=== PATIENT | female | born 1965 | race Asian ===

== ENCOUNTER 2022-05-12 17:06 | Outpatient (REF) | payer OTHER, SELFPAY ==
[2022-05-12 17:54] LABS: Appearance Urine Clear; Color Urine Yellow; Glucose Urine UA Negative (Negative); Leukocyte Esterase Urine Trace (Negative); Nitrite Urine Negative (Negative); Specific Gravity - Urine <= 1.005 (1.005-1.025); UMIC TRIGGER UACC YES; Urine Blood Trace (Negative); Urine Ketones Negative (Negative); Urine Protein Negative (Neg-Trace)
[2022-05-12 18:02] LABS: Bacteria Urine None Seen (None Seen); Hyaline Casts Urine 0-2 /LPF (0-2); Squamous Epithelial Cell Urine 0-2 /HPF (0-2); WBC Urine 0-5 /HPF (0-5)
[2022-05-12 18:02] LABS: Estimated Average Glucose 111 mg/dL; Hemoglobin A1c % 5.5 %
[2022-05-12 18:15] LABS: Alanine Aminotransferase 21 U/L (0-31); Albumin Level 4.4 g/dL (3.5-5.0); Alkaline Phosphatase 81 U/L (39-117); Anion Gap 14 (12-20); Aspartate Amino Transferase 20 U/L (5-31); Bilirubin Total 0.6 mg/dL (0.0-1.0); Blood Urea Nitrogen 7 mg/dL (9-16); Calcium 9.6 mg/dL (8.4-10.2); Carbon Dioxide 24 mmol/L (22-29); Chloride 108 mmol/L (96-108); Cholesterol 261 mg/dL; Estimated Glomerular Filt Rate > 60; Glucose Fasting 82 mg/dL (60-99); HDL Cholesterol 73 mg/dL; LDL Cholesterol Calculated 165 mg/dl; Potassium 4.1 mmol/L (3.3-5.1); Sodium 142 mmol/L (135-145); Total Protein 7.4 g/dL (6.5-8.0); Triglycerides 116 mg/dL
[2022-05-12 18:31] LABS: Basophils Absolute Auto 0.1 X10*3/uL (0.0-0.2); Basophils Percent Auto 1.5 % (0-2); Eosinophils Absolute Auto 0.4 X10*3/uL (0.0-0.4); Hematocrit 43.1 % (37.0-47.0); Hemoglobin 13.1 g/dl (12.0-16.0); Imm Gran Abs Auto 0.01 X10*3/uL (0.00-0.03); Imm Gran Pct Auto 0.2 % (0.0-0.4); Lymphocytes Absolute Auto 2.2 X10*3/uL (1.2-4.9); Lymphocytes Percent Auto 38.6 % (20-40); MANUAL DIFF FLAG SCAN; Mean Corpuscular HGB Conc 30.4 g/dl (31.0-35.0); Mean Corpuscular Hemoglobin 19.4 pg (27.0-33.0); Mean Corpuscular Volume 63.7 fL (80.0-98.0); Mean Platelet Volume 10.3 fL (9.4-12.3); Monocytes Absolute Auto 0.5 X10*3/uL (0.1-1.2); Monocytes Percent Auto 8.1 % (2-11); Neutrophils Absolute Auto 2.7 x10*3/uL (2.0-8.3); Neutrophils Percent Auto 45.6 % (45-73); Platelet Count 248 X10*3/uL (160-400); Red Blood Count 6.77 X10*6/uL (4.20-5.50); Red Cell Distribution Width 17.1 % (11.0-16.0); SCAN SMEAR FLAG 1; White Blood Count 5.8 X10*3/uL (4.8-10.8)
[2022-05-12 18:32] LABS: PLT ABN DIST 1
[2022-05-12 18:35] LABS: Free T4 (Free Thyroxine) 1.26 ng/dL (0.71-1.85); Thyroid Stimulating Hormone 2.62 uIU/mL (0.32-4.0)
[2022-05-12 18:55] LABS: SLIDE REVIEW VERIFIED
== END 2022-05-12 17:07 | disposition home or self-care (01) ==
LOC: HO.LAB 17:06
PROVIDERS: PCP Internal Medicine; Visit Provider Internal Medicine
DX: Z00.00 Encounter for general adult medical examination without abnormal findings (principal); E78.00 Pure hypercholesterolemia, unspecified; E55.9 Vitamin D deficiency, unspecified; E03.9 Hypothyroidism, unspecified; R73.01 Impaired fasting glucose
CPT/HCPCS: 36415; 80053; 80061; 81001; 82306; 83036; 84439; 84443; 85025

== ENCOUNTER 2022-05-21 14:39 | Outpatient (REF) | payer OTHER, SELFPAY ==
--- NOTE | ~2022-05-21 | MM_ITS ---
EXAMINATION: MM SCREENING DIGITAL BREAST TOMOSYNTHESIS, BILATERAL CLINICAL INFORMATION: Screening. Asymptomatic. The lifetime risk of breast cancer based on the Tyrer-Cuzick Model is 10.5%. COMPARISON: Mammography: 08/10/2013 and studies dating back to 02/16/2009. TECHNIQUE: Digital breast tomosynthesis is performed in both the craniocaudal and mediolateral oblique views along with computer-aided detection (CAD). Synthesized 2D images are generated from the tomosynthesis. FINDINGS: The breasts are heterogeneously dense, which may obscure small masses (ACR BI-RADS breast composition Category c). Within the anterior upper outer aspect of the right breast is a developing grouping of calcifications for which further evaluation with spot magnification views is recommended. Otherwise there is a stable parenchymal pattern present bilaterally. MM/MM tomosynthesis screening BI IMPRESSION: Right breast calcifications for further evaluation with magnification views. ASSESSMENT: BI-RADS 0: Incomplete - Need Additional Imaging Evaluation RECOMMENDATION: 1. Additional views of the right breast. 2. Targeted ultrasound if warranted after review of the additional views. 3. Radiology department staff will contact the patient for additional imaging. This patient's information was entered into a reminder system with a target due date for their next mammogram.
--- NOTE | ~2022-05-21 | MM_ITS ---
EXAMINATION: BONE DENSITOMETRY CLINICAL INDICATION: Asymptomatic menopausal state. COMPARISON: This is the patient's baseline examination. TECHNIQUE: Using a Frontify DXA System (software version: 13.1) manufactured by [employer], dual-energy x-ray absorptiometry was performed of the lumbar spine and left hip. The images are of good technical quality. Summary results are attached. FINDINGS: AP SPINE L1-L4: BMD 0.976 g/cm2, Z-score -1.1, T-score -1.7, osteopenia. LEFT FEMUR, NECK: BMD 0.817 g/cm2, Z-score -0.7, T-score -1.6, osteopenia. LEFT FEMUR, TOTAL: BMD 0.856 g/cm2, Z-score -0.7, T-score -1.2, osteopenia. IDENTIFIED RISK FACTORS: Menopause, history of fracture (adult), tobacco use (current smoker). HISTORY OF FRACTURE: Other. MEDICATIONS: None listed. MM/XR DEXA axial skeleton IMPRESSION: 1. DIAGNOSIS: Osteopenia based on the lowest T-score value of -1.7 in the lumbar spine applying World Health Organization criteria. 2. 10-YEAR FRACTURE RISK PREDICTION, FRAX: Major osteoporotic fracture (clinical spine, forearm, hip or shoulder) 7.0%. Hip fracture 1.1%. 3. Treatment Recommendations: NOF guidelines recommend consideration for treatment in postmenopausal women and men age 50 and older presenting with the following: -A hip or vertebral (clinical or morphometric) fracture. -T-score less than or equal to -2.5 at the femoral neck or spine after appropriate evaluation to exclude secondary causes. -Low bone mass at the hip or spine and a 10-year fracture probability by FRAX of greater than or equal to 3% for hip fracture or greater than or equal to 20% for major osteoporotic fracture based on the [place] adapted WHO algorithm. 4. Other Recommendations: All treatment decisions require clinical judgment and consideration of individual patient factors, including patient preferences, comorbidities, previous drug use, risk factors not captured in the FRAX model (e.g. frailty, falls, vitamin D deficiency, increased bone turnover, interval significant decline in bone density) and possible under or overestimation of fracture risk by FRAX. Additional medical evaluation for secondary cause of low bone mineral density may be appropriate. FUTURE SCAN RECOMMENDATION: People with diagnosed cases of osteoporosis or at high risk for fracture should have regular bone mineral density tests. For patients eligible for Medicare, routine testing is allowed once every 2 years. The testing frequency can be increased to one year for patients who have rapidly progressing disease, those who are receiving or discontinuing medical therapy to restore bone mass, or have additional risk factors.
--- NOTE | 2022-05-21 15:30 | ECG_ITS ---
Test Reason : palpitations Blood Pressure : / mmHG Vent. Rate : 060 BPM Atrial Rate : 060 BPM P-R Int : 138 ms QRS Dur : 102 ms QT Int : 476 ms P-R-T Axes : 005 -16 -08 degrees QTc Int : 476 ms Normal sinus rhythm RSR' or QR pattern in V1 suggests right ventricular conduction delay Nonspecific T wave abnormality Prolonged QT Abnormal ECG No previous ECGs available Referred By: Jesus Suggs Electronically Signed By:SLIME RUDD MD
== END 2022-05-21 14:40 | disposition home or self-care (01) ==
LOC: HO.MAMMO 14:39
PROVIDERS: PCP Internal Medicine; Visit Provider Internal Medicine
DX: Z12.31 Encounter for screening mammogram for malignant neoplasm of breast (principal); Z13.820 Encounter for screening for osteoporosis; E03.9 Hypothyroidism, unspecified; R00.2 Palpitations; Z78.0 Asymptomatic menopausal state
CPT/HCPCS: 77063; 77067; 77080; 93005

== ENCOUNTER 2022-06-01 14:57 | Outpatient (REF) | payer OTHER, SELFPAY ==
--- NOTE | ~2022-06-01 | MM_ITS ---
EXAMINATION: MM DIAGNOSTIC DIGITAL MAMMOGRAPHY, RIGHT CLINICAL INFORMATION: New increasing grouping of microcalcifications superior aspect of the right breast. COMPARISON: Mammography: 05/21/2022 and studies dating back to 09/24/2006. TECHNIQUE: Digital mammography is performed in the following views: Spot magnification views of the right breast in craniocaudal and 90 degree mediolateral views. FINDINGS: The breasts are heterogeneously dense, which may obscure small masses (ACR BI-RADS breast composition Category c). There is an indeterminate grouping of greater than 10 microcalcifications about the superior aspect of the right breast. No branching forms are identified. These calcifications do not layer on 90 degree mediolateral view. Stereotactic core biopsy is recommended. Results are discussed with the patient at time of visit. MM/MM added views RT IMPRESSION: Indeterminate right breast calcifications for stereotactic biopsy. ASSESSMENT: BI-RADS 4: Suspicious RECOMMENDATION: Stereotactic core biopsy right breast. The above was discussed with the patient in detail demonstrating stereotactic core biopsy equipment as as well as reviewing her imaging with me on my workstation. Patient left the department before appointment for biopsy was made. Mammography Center flight line service attendant will call referring provider's office in the morning.
== END 2022-06-01 14:58 | disposition home or self-care (01) ==
LOC: HO.MAMMO 14:57
PROVIDERS: PCP Internal Medicine; Visit Provider Internal Medicine
DX: R92.1 Mammographic calcification found on diagnostic imaging of breast (principal)
CPT/HCPCS: 77065

== ENCOUNTER → 2022-08-20 15:10 | Outpatient (BNVA) | payer OTHER, SELFPAY | PROVIDERS: PCP Internal Medicine; Referring Provider Internal Medicine; Visit Provider Internal Medicine Cardiovascular Disease | DX: Z13.89 Encounter for screening for other disorder (principal) ==

== ENCOUNTER → 2022-09-03 08:19 | Outpatient (REF) | payer OTHER, SELFPAY ==
--- NOTE | 2022-09-03 08:22 | CA_ITS ---
Acquisition Time: 2022-09-03 08:28:54 Total Exercise Time: 00:07:20 Test Indications: R06.00 - Dyspnea, unspecified Medications: Protocol: JUDE Max HR: 148 BPM 96% of Pred: 154 BPM Max BP: 130/080 mmHG Max Work Load: 8.9 METS Exercise stress test with exercise 7 min 20 sec of Jude protocol, achieving 94% MPHR, without anginal symptoms, without arrythmia, with normotensive response to exercise, without EKG changes meeting criteria for ischemia. Test reviewed with Dr Cortes. Referred By: Wayne Nichole Overread By: AVINASH SANTIAGO
== END ==
LOC: HO.CARD 08:19
PROVIDERS: PCP Internal Medicine; Visit Provider Internal Medicine Cardiovascular Disease
DX: R06.00 Dyspnea, unspecified (principal)
CPT/HCPCS: 93017

== ENCOUNTER → 2022-11-05 15:21 | Outpatient (BNVA) | payer OTHER, SELFPAY | PROVIDERS: PCP Internal Medicine; Referring Provider Internal Medicine; Visit Provider Internal Medicine Cardiovascular Disease | DX: Z13.89 Encounter for screening for other disorder (principal) ==

== ENCOUNTER 2023-05-19 15:36 | Outpatient (AMB) | payer OTHER, SELFPAY ==
[2023-05-19 15:38] VITALS: BP 110/80; PULSE 96; O2SAT 98; BMI 28.2
--- NOTE | 2023-05-19 15:38 | A.OFFPC_ITS ---
Vital Signs 05/19/23 15:38 Height 5 ft 4 in Weight 164 lb 2 oz BMI 28.2 BP 110/80 Blood Pressure Location Lt brachial Position Sitting Pulse 96 Pulse Source Pulse Oximeter Pulse Oximetry (%) 98 Oxygen Delivery Method Room Air Intake Visit Reasons: PE Environmental Compliance Engineer Required: No Accompanied by: Self / Same As Patient Allergies No Known Drug Allergies Allergy (Unknown, Verified 05/20/23 04:02) Unknown Medication List - Last Reconciled 05/20/23 by Jesus Suggs MD armodafinil (Nuvigil) 150 mg PO QAM 30 days cholecalciferol (vitamin D3) 50 mcg PO DAILY 90 days triamcinolone acetonide 0.5% 1 appl topical BID PRN Tobacco use date assessed: 05/19/23 Dental Screening Dental Screen Date: 05/19/23 Did you have a dental visit in the last 12 months?: Yes Did you have a dental problem in the last 6 months where you did not have access to dental care?: No Was dental information given to patient?: Patient has dentist HPI PE HPI Details Patient comes in today for her annual physical examination States that she feels okay She denies any headaches or dizziness Denies any chest pains, no shortness of breath No nausea/vomiting, no abdominal pain No change in bowel habits noted Denies any acute urinary symptoms She is scheduled for a repeat mammogram next week to follow-up on the calcifications seen on her right breast on mammogram done last year She had her bone density done last year, which showed osteopenia She did not get her Cologuard done last year but would like to get this reordered - states that she will try get this done as soon as she gets the Cologuard kit She has also not had her gynecology exam and pap smear done yet - was referred to OB-Licensed Embalmer Supervisor of her choice in [place] a few months ago but states that she has not heard back from the doctor's office so far [facility] Medical History (Updated 05/20/23 @ 06:04 by Jesus Suggs MD) Osteopenia Vitamin D deficiency Pure hypercholesterolemia Shift work sleep disorder Overweight (BMI 25.0-29.9) Smoker Hypothyroidism Surgical History History of lumpectomy of right breast History of surgery of uterus Family History Father Diabetes Stroke Hypertension Mother COPD (chronic obstructive pulmonary disease) Asthma Social History Housing: House Patient Tobacco Use Status: Former Tobacco user Quit Date: 2022 Years Smoked: Quit 10/24/2022 Second Hand Smoke Exposure: Yes Current occupational status: employed 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 1. Little interest or pleasure in doing things: not at all 2. Feeling down, depressed, or hopeless: not at all 3. Trouble falling or staying asleep, or sleeping too much: not at all 4. Feeling tired or having little energy: not at all 5. Poor appetite or overeating: not at all 6. Feeling bad about yourself - or that you are a failure or have let yourself or your family down: not at all 7. Trouble concentrating on things, such as reading the newspaper or watching television: not at all 8. Moving or speaking so slowly that other people could have noticed. Or the opposite - being so fidgety or restless that you have been moving around a lot more than usual: not at all 9. Thoughts that you would be better off or of hurting yourself in some way: not at all Total score: 0 Depression Screening Interpretation: Negative Depression Screening Done: Yes 90277 - PHQ-9 Billing: Yes Source: Developed by Drs. Tung Ayala, Paula Bro, Silas Tomlinson and colleagues, with an educational dilcia from [employer]. Thrive Questionnaire Date Thrive assessed: 05/19/23 I am a: Patient What is your living situation today?: I have a steady place to live Within the past 12 months, did the food you bought not last and you didn't have the money to get more?: Never true Within the past 12 months, did you worry whether your food would run out before you got money to buy more?: Never true Do you have trouble paying for medicines?: No Do you have trouble getting transportation to medical appointments?: No Do you have trouble paying your heating and electricity bill?: No Do you have trouble taking care of your child, family member or friend?: No Do you have trouble with day-to-day activities such as bathing, preparing meals, shopping, managing finances, etc.?: No Are you currently unemployed and looking for a job?: No Are you interested in more education?: No Please select the resources that you would like help with: None Currently or been in a relationship where the following occur: no concerns reported AUDIT C Alcohol Use Questionnaire (AUDIT-C) 1. How often do you have a drink containing alcohol?: Monthly or less 2. How many drinks containing alcohol do you have on a typical day when you are drinking?: 1 or 2 3. How often do you have six or more drinks on one occasion?: Never Total Score: 1 Score Reviewed/Action Taken: Yes TRA-7 AMB Questionnaire TRA-7 Date TAR - 7 assessed: 05/19/23 Feeling nervous, anxious, or on edge: 0 = Not at all Not being able to stop or control worryin = Not at all Worrying too much about different things: 0 = Not at all Trouble relaxin = Not at all Being so restless that it is hard to sit still: 0 = Not at all Becoming easily annoyed or irritable: 0 = Not at all Feeling afraid as if something awful might happen: 0 = Not at all Total TRA-7 score (0-4 normal; 5-9 mild; 10-14 moderate; 15-21 severe): 0 Source: Developed by Drs. Tung Ayala, Paula Bro, Silas Tomlinson and colleagues, with an educational dilcia from [employer]. Review of Systems Const Denies chills, Denies fatigue, Denies fever(s), Denies headache(s) and Denies malaise Eyes Denies blurry vision, Denies change in vision, Denies irritation and Denies itchy eyes ENT Denies dysphagia, Denies dizziness, Denies otalgia, Denies headache(s), Denies nasal congestion, Denies neck pain, Denies odynophagia, Denies sinus pain and Denies sore throat Card Denies chest pain, Denies rapid heart rate, Denies irregular heart rhythm, Denies palpitations and Denies dyspnea Resp Denies chest congestion, Denies cough, Denies dyspnea and Denies wheezing GI Denies abdominal pain, Denies bloating, Denies constipation, Denies dysphagia, Denies heartburn, Denies diarrhea, Denies nausea, Denies odynophagia and Denies vomiting Denies hematuria, Denies urinary frequency, Denies dysuria, Denies urinary incontinence and Denies urinary urgency Musc Denies back pain, Denies arthralgias, Denies joint swelling, Denies muscle weakness and Denies neck pain Skin/Breast Denies breast pain, Denies breast mass, Denies change in pigmentation, Denies lesions, Denies rash and Denies unusual bruising Neuro Denies dizziness, Denies headache(s) and Denies paresthesias Psych Denies anxiety and Denies depression Endo Denies fatigue and Denies palpitations Bassam/Lymph Denies easy bruising Aller/Immun Denies itchy eyes and Denies wheezing Physical exam (Primary Care) Vital Signs: Last Vital Signs Pulse 96 05/19/23 15:38 BP 110/80 05/19/23 15:38 Pulse Ox 98 05/19/23 15:38 Oxygen Delivery Method Room Air 05/19/23 15:38 BMI result Body Mass Index 28.2 Tobacco/Smoking Status: Tobacco use Status Tobacco use date assessed 05/19/23 05/19/23 15:43 Patient Tobacco Use Status Former Tobacco user 05/19/23 15:43 PHQ-9: PHQ-9 Score PHQ-9: Total score 0 05/20/23 04:15 Depression Screening Interpretation: Negative Thrive Assessment: Date of Thrive Assessment Date Thrive assessed 05/19/23 05/19/23 15:43 Currently or been in a relationship where the following occur: no concerns reported Const General: no acute distress, alert and awake Orientation/consciousness: patient oriented x3 HENMT Head: Yes normocephalic and Yes atraumatic Ears: external ears normal, TM's normal bilaterally and EAC's normal General nose exam: No nasal discharge present Face and sinus: Yes normal facial exam and Yes sinuses nontender Teeth and gingiva: dentition normal Throat: Yes posterior oropharynx normal and Yes tonsils normal (no TP congestion) Eyes Eyelids: Yes eyelids normal Conjunctivae: conjunctivae normal Pupils: Equal, round and reactive pupils present EOM: EOMs intact bilaterally Neck Neck: Yes no lymphadenopathy and Yes supple Thyroid: Thyroid normal Resp Auscultation: clear to auscultation bilaterally, no rales and no wheezes Cardio Rate: regular rate Rhythm: regular rhythm Heart sounds: no murmurs GI Palpation (GI): Soft to palpation, nontender and No hepatosplenomegaly present Auscultation: normal bowel sounds General: Yes no CVA tenderness Back/Spine/Pelvis Back: no CVA tenderness Thoracic/Lumbar Spine: thoracic and lumbar spine normal to inspection Skin Lesions: no lesions Rashes: no rashes Neuro General: patient oriented x3, moves all extremities, no focal motor deficits and CN's II-XI intact bilaterally Cranial nerves: Yes Equal, round and reactive pupils present Cognition (Neuro): normal cognition Gait exam (Neuro): Normal gait present Extrem General: Yes no clubbing, cyanosis or edema Assessment and Plan Assessment & Plan (1) Annual physical exam: Code(s): Z00.00 - Encounter for general adult medical examination without abnormal findings Plan: Will send patient for her annual routine labs NOLVIA (2) Shift work sleep disorder: Code(s): 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, shift work type Plan: Patient has had difficulty sleeping often over the years, most likely due to shift-work sleep disorder as 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 Continue Nuvigil 150 mg Q AM - states that her sleep has gotten a lot better since she was trialed on Nuvigil last year (3) Pure hypercholesterolemia: Code(s): E78.00 - Pure hypercholesterolemia, unspecified Plan: Reminded again that her cholesterol levels were elevated on her labs done back in May 2022, with her LDL cholesterol at 165 mg/dl Reinforced low cholesterol diet We will recheck her fasting lipids for follow up (4) History of hypothyroidism: Code(s): Z86.39 - Personal history of other endocrine, nutritional and metabolic disease Plan: Was taking Synthroid in the past but stopped taking it on her own a few years ago - reports that she's had no problems since coming off Rx Her TFTs checked last year came out normal, so she did NOT need to go back on any thyroid hormone replacements or supplements at the time Will recheck her TFTs for follow up (5) Vitamin D deficiency: Code(s): E55.9 - Vitamin D deficiency, unspecified Plan: Continue Vitamin D3 2000 units QD Will recheck her Vitamin D level for follow up (6) Osteopenia: Code(s): M85.80 - Other specified disorders of bone density and structure, unspecified site Qualifiers: Osteopenia location: unspecified Qualified Code(s): M85.80 - Other specified disorders of bone density and structure, unspecified site Plan: Her baseline BMD done last year (2021) revealed (+) osteopenia based on the lowest T-score value of -1.7 in the lumbar spine Her 10-year FRAX score = Major osteoporotic fracture (clinical spine, forearm, hip or shoulder) 7.0% and Hip fracture 1.1% Have advised patient to continue on her daily vitamin-D intake and to also start taking oral Calcium supplements of at least 1000 to 1200 mg daily and encouraged her to stay active and exercise regularly but emphasized fall precautions Will recheck her BMD in 2 years and if her BMD declines further, will consider starting her on oral bisphosphonates (7) Calcification of right breast on mammography: Code(s): R92.1 - Mammographic calcification found on diagnostic imaging of breast Plan: Patient had some calcifications on her right breast that was first noticed on routine mammogram done back in May 2022 and these were confirmed on additional view She was recommended to undergo stereotactic Bx for further evaluation but she has not been able to get this scheduled Have advised patient that we should try to get her scheduled for the Bx NOLVIA but she states that she is scheduled to leave for the [facility] for vacation early next month and would like to have this put on hold for when she comes back - was never able to get this scheduled since She is now at least scheduled for her repeat mammogram next week - will need to schedule for Bx NOLVIA if the calcification is still present and hopefully unchanged from last year (8) Smoker: Code(s): F17.200 - Nicotine dependence, unspecified, uncomplicated Plan: Counseled again on smoking cessation (9) Overweight (BMI 25.0-29.9): Code(s): E66.3 - Overweight Plan: Reinforced diet/exercise as tolerated/lose weight (10) Cervical cancer screening: Code(s): Z12.4 - Encounter for screening for malignant neoplasm of cervix Plan: She was referred to OB-Licensed Embalmer Supervisor of her choice in [place] to get her annual pap smear and 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 a few months ago but she has not heard back from the doctor's office so far - it has been a few years now since she's had her pap smear done Have printed out her previous referral with the doctor's contact info and have advised her to give them a call to schedule her appt NOLVIA (11) Colon cancer screening: Code(s): Z12.11 - Encounter for screening for malignant neoplasm of colon Plan: Patient again declined offer to refer her for a screening colonoscopy - has never had one done in the past Agrees to do Cologuard testing again; she states that she completely forgot about the Cologuard testing last year - test reordered Plan Follow up in 6 months Orders: Orders Complete Blood Count Auto Diff 05/19/23 D56.3 - Thalassemia minor, Z00. - Encounter for general adult medical examination without abnormal findings Comprehensive [facility]. Panel Fast 05/19/23 E78.00 - Pure hypercholesterolemia, unspecified, Z00. - Encounter for general adult medical examination without abnormal findings TSH reflex Free T4 05/19/23 E78.00 - Pure hypercholesterolemia, unspecified, Z00.00 - Encounter for general adult medical examination without abnormal findings UA CC w/rflx Micro + Cult 05/19/23 R30.0 - Dysuria, Z00. - Encounter for general adult medical examination without abnormal findings Hemoglobin A1c 05/19/23 R73.01 - Impaired fasting glucose, Z00. - Encounter for general adult medical examination without abnormal findings ISAMAR Reflex Titer and Pattern 05/19/23 M25.50 - Pain in unspecified joint C Reactive Protein 05/19/23 M25.50 - Pain in unspecified joint Erythrocyte Sedimentation Rate 05/19/23 M25.50 - Pain in unspecified joint Lipid Panel 05/19/23 E78.00 - Pure hypercholesterolemia, unspecified, Z00.00 - Encounter for general adult medical examination without abnormal findings Vitamin D 25-OH Total 05/19/23 E55.9 - Vitamin D deficiency, unspecified, Z00.00 - Encounter for general adult medical examination without abnormal findings Referrals Cologuard Test Z12.11 - Encounter for screening for malignant neoplasm of colon Coding Level of Care Code Est Pt Prev Care 40-64y([id number]) Diagnoses Annual physical exam Z00.00 Shift work sleep disorder G47.26 Pure hypercholesterolemia E78.00 History of hypothyroidism Z86.39 Vitamin D deficiency E55.9 Osteopenia, unspecified location M85.80 Osteopenia location: unspecified Calcification of right breast on mammography R92.1 Smoker F17.200 Overweight (BMI 25.0-29.9) E66.3 Cervical cancer screening Z12.4 Colon cancer screening Z12.11
== END 2023-05-19 16:44 | disposition home or self-care (01) ==
PROVIDERS: Visit Provider Internal Medicine
DX: Z00.00 Encounter for general adult medical examination without abnormal findings (principal); G47.26 Circadian rhythm sleep disorder, shift work type; E78.00 Pure hypercholesterolemia, unspecified; Z86.39 Personal history of other endocrine, nutritional and metabolic disease; E55.9 Vitamin D deficiency, unspecified; M85.80 Other specified disorders of bone density and structure, unspecified site; R92.1 Mammographic calcification found on diagnostic imaging of breast; F17.200 Nicotine dependence, unspecified, uncomplicated; E66.3 Overweight; Z12.4 Encounter for screening for malignant neoplasm of cervix; Z12.11 Encounter for screening for malignant neoplasm of colon
CPT/HCPCS: 99396

== ENCOUNTER 2023-05-27 14:29 | Outpatient (REF) | payer OTHER, SELFPAY ==
--- NOTE | ~2023-05-27 | MM_ITS ---
EXAMINATION: MM DIAGNOSTIC DIGITAL BREAST TOMOSYNTHESIS, BILATERAL CLINICAL INFORMATION: Suspicious calcifications central upper right breast, originally referred for stereotactic biopsy, however the patient did not show for the appointment, and is quite hesitant about undergoing stereotactic biopsy. Reevaluate right calcifications. Patient also due for bilateral screening. COMPARISON: Mammography: 06/01/2022, 05/21/2022, dating back to 2013. TECHNIQUE: Digital breast tomosynthesis is performed in both the craniocaudal and mediolateral oblique views along with computer-aided detection (CAD). Synthesized 2D images are generated from the tomosynthesis. In addition, 2-D spot compression right CC and ML views were performed of the right breast. FINDINGS: The breasts are heterogeneously dense, which may obscure small masses (ACR BI-RADS breast composition Category c). Grouped pleomorphic calcifications are extremely subtle and extremely fine within the central 12:00 axis of the right breast, middle one third. Grossly, on spot magnification views, they appear stable from prior spot magnification views, although given the fine and subtle nature of these calcifications, subtle changes may be occult. Otherwise, there are a few scattered benign type calcifications in both breasts which appear dystrophic. No suspicious masses, or areas of architectural distortion in either breast. MM/MM tomosynthesis diagnostic BI IMPRESSION: There are no significant changes from prior study. Grossly stable pleomorphic indeterminate calcifications 12:00 axis RIGHT breast, middle one depth. Again, stereotactic biopsy is advised, mainly due to the appearance of the calcifications with tight grouping. Subtle changes could easily be occult. No suspicious findings left breast. Findings and recommendations were discussed with the patient in detail. ASSESSMENT: BI-RADS BI-RADS 4 - Suspicious finding RECOMMENDATION: Biopsy recommended Results were provided to the patient at time of visit by the technologist. This patient's information was entered into a reminder system with a target due date for their next mammogram.
[2023-05-27 16:36] LABS: Basophils Absolute Auto 0.1 X10*3/uL (0.0-0.2); Basophils Percent Auto 1.6 % (0-2); Eosinophils Absolute Auto 0.3 X10*3/uL (0.0-0.4); Eosinophils Percent Auto 5.1 % (0-4); Hematocrit 39.8 % (37.0-47.0); Hemoglobin 12.1 g/dl (12.0-16.0); Imm Gran Abs Auto 0.01 X10*3/uL (0.00-0.03); Imm Gran Pct Auto 0.2 % (0.0-0.4); Lymphocytes Absolute Auto 2.2 X10*3/uL (1.2-4.9); Lymphocytes Percent Auto 35.3 % (20-40); Mean Corpuscular HGB Conc 30.4 g/dl (31.0-35.0); Mean Corpuscular Hemoglobin 19.5 pg (27.0-33.0); Monocytes Absolute Auto 0.5 X10*3/uL (0.1-1.2); Monocytes Percent Auto 8.2 % (2-11); Neutrophils Percent Auto 49.6 % (45-73); Platelet Count 277 X10*3/uL (160-400); Red Cell Distribution Width 17.2 % (11.0-16.0); White Blood Count 6.1 X10*3/uL (4.8-10.8)
[2023-05-27 16:39] LABS: Appearance Urine Clear; Color Urine Yellow; Glucose Urine UA Negative (Negative); Leukocyte Esterase Urine Small (1+) (Negative); Nitrite Urine Negative (Negative); PH 5.5 (5.0-9.0); Specific Gravity - Urine 1.015 (1.005-1.025); UMIC TRIGGER UACC YES; Urine Blood Moderate (2+) (Negative); Urine Ketones Negative (Negative); Urine Protein Negative (Neg-Trace)
[2023-05-27 16:47] LABS: Estimated Average Glucose 108 mg/dL; Hemoglobin A1c % 5.4 % (<6.0)
[2023-05-27 16:51] LABS: Bacteria Urine None Seen (None Seen); Hyaline Casts Urine 0-2 /LPF (0-2); Squamous Epithelial Cell Urine 0-2 /HPF (0-2); UACC Culture Trigger YES; WBC Urine 0-5 /HPF (0-5)
[2023-05-27 16:59] LABS: Mean Corpuscular Volume 64.2 fL (80.0-98.0)
[2023-05-27 17:02] LABS: MANUAL DIFF FLAG SCAN
[2023-05-27 17:03] LABS: SLIDE REVIEW VERIFIED
[2023-05-27 17:09] LABS: Alanine Aminotransferase 31 U/L (0-31); Albumin Level 4.2 g/dL (3.5-5.0); Alkaline Phosphatase 88 U/L (39-117); Anion Gap 12 (12-20); Aspartate Amino Transferase 24 U/L (5-31); Bilirubin Total 0.4 mg/dL (0.0-1.0); Blood Urea Nitrogen 11 mg/dL (9-16); C Reactive Protein 0.12 mg/dL (< or = 0.50); Calcium 9.9 mg/dL (8.4-10.2); Carbon Dioxide 25 mmol/L (22-29); Chloride 108 mmol/L (96-108); Cholesterol 241 mg/dL (<200); Estimated Glomerular Filt Rate > 60; Glucose Fasting 87 mg/dL (60-99); HDL Cholesterol 72 mg/dL (>40); LDL Cholesterol Calculated 149 mg/dL (<100); Potassium 3.9 mmol/L (3.3-5.1); Sodium 141 mmol/L (135-145); Total Protein 7.6 g/dL (6.5-8.0); Triglycerides 103 mg/dL (<150)
[2023-05-27 17:22] LABS: Erythrocyte Sedimentation Rate 7 MM/HR (0-20)
[2023-05-27 17:25] LABS: Free T4 (Free Thyroxine) 1.06 ng/dL (0.71-1.85); Thyroid Stimulating Hormone 3.79 uIU/mL (0.32-4.0); Vitamin D 25-OH Total 42.8 ng/mL (>30)
[2023-05-28 15:43] LABS: Hematocrit 41.2 % (35.0-45.0); Hemoglobin 12.1 g/dL (11.7-15.5); MCH 19.6 pg (27.0-33.0); MCV 66.8 fL (80.0-100.0); RBC 6.17 Million/uL (3.80-5.10); RDW 15.1 % (11.0-15.0)
[2023-06-01 12:33] LABS: Anti Nuclear Antibody Screen POSITIVE (NEGATIVE)
== END 2023-05-27 14:30 | disposition home or self-care (01) ==
LOC: HO.MAMMO 14:29
PROVIDERS: PCP Internal Medicine; Visit Provider Internal Medicine
DX: R92.1 Mammographic calcification found on diagnostic imaging of breast (principal); M25.50 Pain in unspecified joint; E78.00 Pure hypercholesterolemia, unspecified; E55.9 Vitamin D deficiency, unspecified; R30.0 Dysuria; R73.01 Impaired fasting glucose; Z00.00 Encounter for general adult medical examination without abnormal findings
CPT/HCPCS: 36415; 77062; 77066; 80053; 80061; 81001; 82306; 83020; 83036; 84439; 84443; 85014; 85018; 85025; 85041; 85652; 86038; 86039; 86140; 87086

== ENCOUNTER → 2023-05-27 14:45 | Outpatient (BNV) | payer OTHER, SELFPAY | PROVIDERS: PCP Internal Medicine; Visit Provider Radiology Diagnostic Radiology | DX: R92.333 Mammographic heterogeneous density, bilateral breasts (principal); R92.1 Mammographic calcification found on diagnostic imaging of breast | CPT/HCPCS: 77062; 77066 ==

== ENCOUNTER 2023-06-18 09:47 | Outpatient (REF) | payer OTHER, SELFPAY ==
--- NOTE | ~2023-06-18 | MM_ITS ---
EXAMINATION: STEREOTACTIC TOMOSYNTHESIS-GUIDED VACUUM-ASSISTED BREAST BIOPSY, RIGHT SPECIMEN RADIOGRAPH, RIGHT POST PROCEDURE DIGITAL MAMMOGRAM, RIGHT CLINICAL INFORMATION: Calcifications central 12:00 axis right breast, suspicious for stereotactic biopsy.. COMPARISON: 06/01/2022. TECHNIQUE/PROCEDURE: Informed consent was obtained from the patient after discussion of the benefits, risks, and alternatives to biopsy today. Patient appeared to understand. Gave opportunity for questions. Patient signed consent form. BIOPSY TABLE: Gusto Affirm Prone Biopsy System. LESION: Calcifications. LOCAL ANESTHESIA: 5 mL 1% lidocaine; 7 mL 1% lidocaine with epinephrine. DERMATOTOMY: Single skin shaheen dermatotomy performed. NEEDLE: [employer] Eviva 9-gauge vacuum assisted core biopsy device. APPROACH: craniocaudal. TARGETING: Combination of digital breast tomosynthesis and stereotactic digital mammography used for targeting. CORES: 7. CLIP: Buckle-shaped. SPECIMEN RADIOGRAPH: Specimen radiograph is taken in separate room using digital mammography. The index calcifications are in the excised cores. POST PROCEDURE UNILATERAL DIGITAL MAMMOGRAM: The post biopsy mammogram is performed in separate room using separate digital mammography equipment from the biopsy procedure. CC and 90 degree mediolateral views are obtained. There are scattered areas of fibroglandular density (breast composition category: b). The clip marker is in accurate and expected position. The calcifications are markedly decreased at the biopsy site. No gross hematoma. The patient tolerated the procedure well. No immediate complications. Home instructions reviewed with the patient. Final pathology results are pending. MM/MM stereotactic biopsy RT IMPRESSION: 1. Digital tomosynthesis-guided core biopsy right breast with clip placement. 2. Specimen radiograph taken and post procedure mammogram. There is accurate and satisfactory positioning of the biopsy clip. 3. Final pathology results pending. An addendum report will be issued.
[2023-06-18] MEDS: Lidocaine HCl 1 % 20 ML VIAL 4 ML SUBCUT (11:27)
[2023-06-18] MEDS: Sodium Bicarbonate 8.4% 50 MEQ/50 ML VIAL SUBCUT (11:29)
[2023-06-18] MEDS: Lidocaine HCl 1%/Epi 1:100,000 10 ML VIAL 17 ML SUBCUT (11:31)
== END 2023-06-18 09:48 | disposition home or self-care (01) ==
LOC: HO.MAMMO 09:47
PROVIDERS: Visit Provider Internal Medicine
DX: R92.1 Mammographic calcification found on diagnostic imaging of breast (principal)
CPT/HCPCS: 19081; 88305; A4648

== ENCOUNTER → 2023-06-18 10:00 | Outpatient (BNV) | payer OTHER, SELFPAY | PROVIDERS: Visit Provider Radiology Diagnostic Radiology | DX: R92.1 Mammographic calcification found on diagnostic imaging of breast (principal) | CPT/HCPCS: 19081 ==

== ENCOUNTER 2023-11-24 15:17 | Outpatient (AMB) | payer OTHER, SELFPAY ==
[2023-11-24 15:18] VITALS: BP 100/68; PULSE 63; O2SAT 97; BMI 28.8
--- NOTE | 2023-11-24 15:18 | A.OFFPC_ITS ---
Vital Signs 11/24/23 15:18 Height 5 ft 4 in Weight 168 lb BMI 28.8 BP 100/68 Blood Pressure Location Lt brachial Position Sitting Pulse 63 Pulse Source Pulse Oximeter Pulse Oximetry (%) 97 Oxygen Delivery Method Room Air Intake Visit Reasons: hyperlipidemia, thalassemia Intake Note: Patient is here to follow up on hyperlipidemia, thalassemia [employer] Required: No Allergies No Known Drug Allergies Allergy (Unknown, Verified 11/24/23 15:47) Unknown Medication List - Last Reconciled 11/24/23 by Jesus Suggs MD armodafinil (Nuvigil) 150 mg PO QAM 30 days cholecalciferol (vitamin D3) 50 mcg PO DAILY 90 days triamcinolone acetonide 0.5% 1 appl topical BID PRN Tobacco use date assessed: 11/24/23 Dental Screening Dental Screen Date: 11/24/23 HPI hyperlipidemia, thalassemia HPI Details Patient comes in today for her follow-up visit States that she feels okay She denies any headaches or dizziness Denies any chest pains, no shortness of breath No nausea /vomiting, no abdominal pain No change in bowel habits noted Would like to go over the results of her labs done back in May 2023 [facility] Medical History Colon cancer screening Osteopenia Vitamin D deficiency Pure hypercholesterolemia Shift work sleep disorder Overweight (BMI 25.0-29.9) Smoker Hypothyroidism Surgical History History of lumpectomy of right breast History of surgery of uterus Family History Father Diabetes Stroke Hypertension Mother COPD (chronic obstructive pulmonary disease) Asthma Social History Housing: House Patient Tobacco Use Status: Former Tobacco user Quit Date: 2022 Years Smoked: Quit 10/24/2022 Second Hand Smoke Exposure: Yes Current occupational status: employed 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 1. Little interest or pleasure in doing things: not at all 2. Feeling down, depressed, or hopeless: not at all 3. Trouble falling or staying asleep, or sleeping too much: not at all 4. Feeling tired or having little energy: not at all 5. Poor appetite or overeating: not at all 6. Feeling bad about yourself - or that you are a failure or have let yourself or your family down: not at all 7. Trouble concentrating on things, such as reading the newspaper or watching television: not at all 8. Moving or speaking so slowly that other people could have noticed. Or the opposite - being so fidgety or restless that you have been moving around a lot more than usual: not at all 9. Thoughts that you would be better off or of hurting yourself in some way: not at all Total score: 0 Depression Screening Interpretation: Negative Depression Screening Done: Yes [id number] - PHQ-9 Billing: Yes Source: Developed by Drs. Tung Ayala, Paula Bro, Silas Tomlinson and colleagues, with an educational dilcia from [employer]. Thrive Questionnaire Date Thrive assessed: 11/24/23 I am a: Patient What is your living situation today?: I have a steady place to live Within the past 12 months, did the food you bought not last and you didn't have the money to get more?: Never true Within the past 12 months, did you worry whether your food would run out before you got money to buy more?: Never true Do you have trouble paying for medicines?: No Do you have trouble getting transportation to medical appointments?: No Do you have trouble paying your heating and electricity bill?: No Do you have trouble taking care of your child, family member or friend?: No Do you have trouble with day-to-day activities such as bathing, preparing meals, shopping, managing finances, etc.?: No Are you currently unemployed and looking for a job?: No Are you interested in more education?: No Please select the resources that you would like help with: None Currently or been in a relationship where the following occur: no concerns reported THRIVE Score: 0 AUDIT C Alcohol Use Questionnaire (AUDIT-C) 1. How often do you have a drink containing alcohol?: Monthly or less 2. How many drinks containing alcohol do you have on a typical day when you are drinking?: 1 or 2 3. How often do you have six or more drinks on one occasion?: Never Total Score: 1 Score Reviewed/Action Taken: Yes TRA-7 AMB Questionnaire TRA-7 Date TRA - 7 assessed: 11/24/23 Feeling nervous, anxious, or on edge: 0 = Not at all Not being able to stop or control worryin = Not at all Worrying too much about different things: 0 = Not at all Trouble relaxin = Not at all Being so restless that it is hard to sit still: 0 = Not at all Becoming easily annoyed or irritable: 0 = Not at all Feeling afraid as if something awful might happen: 0 = Not at all Total TRA-7 score (0-4 normal; 5-9 mild; 10-14 moderate; 15-21 severe): 0 Source: Developed by Drs. Tung Ayala, Paula Bro, Silas Tomlinson and colleagues, with an educational dilcia from [employer]. Review of Systems Const Denies chills, Reports difficulty sleeping, Reports fatigue, Denies fever(s) and Denies headache(s) ENT Denies dysphagia, Denies dizziness, Denies otalgia, Denies headache(s), Denies odynophagia and Denies sore throat Card Denies chest pain, Denies palpitations and Denies dyspnea Resp Denies cough and Denies dyspnea GI Denies abdominal pain, Denies constipation, Denies dysphagia, Denies heartburn, Denies diarrhea, Denies nausea, Denies odynophagia and Denies vomiting Denies difficulty voiding, Denies nocturia and Denies dysuria Musc Denies back pain Neuro Denies dizziness and Denies headache(s) Endo Reports fatigue and Denies palpitations Physical exam (Primary Care) Vital Signs: Last Vital Signs Pulse 63 11/24/23 15:18 BP 100/68 11/24/23 15:18 Pulse Ox 97 11/24/23 15:18 Oxygen Delivery Method Room Air 11/24/23 15:18 BMI result Body Mass Index 28.8 Tobacco/Smoking Status: Tobacco use Status Tobacco use date assessed 11/24/23 11/24/23 15:19 Patient Tobacco Use Status Former Tobacco user 11/24/23 15:19 PHQ-9: PHQ-9 Score PHQ-9: Total score 0 11/24/23 15:47 Depression Screening Interpretation: Negative Thrive Assessment: Date of Thrive Assessment Date Thrive assessed 11/24/23 11/24/23 15:19 Currently or been in a relationship where the following occur: no concerns reported Const General: no acute distress and alert HENMT Ears: TM's normal bilaterally and EAC's normal Throat: Yes posterior oropharynx normal and Yes tonsils normal (no TP congestion) Neck Neck: Yes no lymphadenopathy and Yes supple Thyroid: Thyroid normal Resp Auscultation: clear to auscultation bilaterally, no rales and no wheezes Cardio Rate: regular rate Rhythm: regular rhythm Heart sounds: no murmurs GI Palpation (GI): Soft to palpation and nontender Auscultation: normal bowel sounds General: Yes no CVA tenderness Back/Spine/Pelvis Back: no CVA tenderness Thoracic/Lumbar Spine: No lumbar spinal tenderness Skin Rashes: no rashes Extrem General: Yes no clubbing, cyanosis or edema Results Reviewed Results Reviewed: Laboratory Tests 05/27/23 05/27/23 16:08 16:09 WBC 6.1 Hgb 12.1 Hct 39.8 MCV 64.2 L MCH 19.5 L RDW 17.2 H Plt Count 277 ESR 7 Potassium 3.9 Creatinine 0.75 Estimated GFR > 60 Fasting Glucose 87 Hemoglobin A1c % 5.4 Calcium 9.9 AST 24 ALT 31 Triglycerides 103 Cholesterol 241 H LDL Cholesterol, Calc 149 H HDL Cholesterol 72 25-OH Vitamin D Total 42.8 TSH 3.79 Free T4 1.06 Ur Specific [place] 1.015 Urine Protein Negative Urine Glucose (UA) Negative Urine Blood Moderate (2+) H Urine Nitrite Negative Ur Leukocyte Esterase Small (1+) H ISAMAR Screen POSITIVE A ISAMAR Titer 1:320 H Assessment and Plan Assessment & Plan (1) Shift work sleep disorder: Code(s): 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, shift work type Plan: Patient has had difficulty sleeping often over the years, most likely due to shift-work sleep disorder as 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 Continue Nuvigil 150 mg Q AM - states that her sleep has gotten a lot better since she was trialed on Nuvigil last year (2) Pure hypercholesterolemia: Code(s): E78.00 - Pure hypercholesterolemia, unspecified Plan: Results of her labs done back in May 2023 reviewed and discussed with patient She is advised that her cholesterol levels were still elevated although they have improved slightly from her numbers in 2021 - LDL cholesterol has dropped slightly from 165 mg/dl to 149 mg/dl Reinforced low cholesterol diet We will recheck her fasting lipids in 6 months for follow up and advised that if her numbers do not continue to improve significantly, then she should consider starting on Rx for her high cholesterol (3) Alpha thalassemia: Code(s): D56.0 - Alpha thalassemia Plan: She is advised that her CBC results suggest that she has alpha thalassemia Will refer her for genetic counseling (4) ISAMAR positive: Code(s): R76.8 - Other specified abnormal immunological findings in serum Plan: Patient is also advised that her labs done in May 2023 came out positive for ISAMAR, suggesting the possibility of lupus Will refer her to rheumatology for further evaluation and management - she requested referral to [facility] in [place] (5) History of hypothyroidism: Code(s): Z86.39 - Personal history of other endocrine, nutritional and metabolic disease Plan: Was taking Synthroid in the past but stopped taking it on her own a few years ago - reports that she's had no problems since coming off Rx Her TFTs checked last year came out normal, so she did NOT need to go back on any thyroid hormone replacements or supplements at the time Her repeat TFTs done in May 2023 remained normal (6) Vitamin D deficiency: Code(s): E55.9 - Vitamin D deficiency, unspecified Plan: Corrected - continue Vitamin D3 2000 units QD Will recheck her Vitamin D level in 6 months for follow up (7) Osteopenia: Code(s): M85.80 - Other specified disorders of bone density and structure, unspecified site Qualifiers: Osteopenia location: unspecified Qualified Code(s): M85.80 - Other specified disorders of bone density and structure, unspecified site Plan: Her baseline BMD done in 2021 revealed (+) osteopenia based on the lowest T- score value of -1.7 in the lumbar spine Her 10-year FRAX score = major osteoporotic fracture (clinical spine, forearm, hip or shoulder) 7.0% and Hip fracture 1.1% Have advised patient to continue on her daily vitamin-D intake and to also start taking oral Calcium supplements of at least 1000 to 1200 mg daily and encouraged her to stay active and exercise regularly but emphasized fall precautions Will recheck her BMD later this year and if her BMD declines further, will consider starting her on oral bisphosphonates (8) Calcification of right breast on mammography: Code(s): R92.1 - Mammographic calcification found on diagnostic imaging of breast Plan: Patient had some calcifications on her right breast that was first noticed on routine mammogram done back in May 2022 and these were confirmed on additional view She was recommended to undergo stereotactic Bx for further evaluation She eventually had this done in June 2023 - pathology came out benign - (+) usual ductal hyperplasia with calcifications at tissue edge; sclerosing adenosis and dense stromal fibrosis She is scheduled for her repeat/follow up mammogram early next month (9) Smoker: Code(s): F17.200 - Nicotine dependence, unspecified, uncomplicated Plan: Counseled again on smoking cessation (10) Overweight (BMI 25.0-29.9): Code(s): E66.3 - Overweight Plan: Reinforced diet/exercise as tolerated/lose weight Plan To return as scheduled in 6 months for her next annual physical examination Orders: Orders Complete Blood Count Auto Diff 05/09/24 D64.9 - Anemia, unspecified, Z00.00 - Encounter for general adult medical examination without abnormal findings Comprehensive [place]. Panel Fast 05/09/24 E78.00 - Pure hypercholesterolemia, unspecified, Z00.00 - Encounter for general adult medical examination without abnormal findings TSH reflex Free T4 05/09/24 E78.00 - Pure hypercholesterolemia, unspecified, Z00.00 - Encounter for general adult medical examination without abnormal findings UA CC w/rflx Micro + Cult 05/09/24 R30.0 - Dysuria, Z00.00 - Encounter for general adult medical examination without abnormal findings IRON PROFILE 05/09/24 D50.9 - Iron deficiency anemia, unspecified, Z00.00 - Encounter for general adult medical examination without abnormal findings Lipid Panel 05/09/24 E78.00 - Pure hypercholesterolemia, unspecified, Z00.00 - Encounter for general adult medical examination without abnormal findings Vitamin D 25-OH Total 05/09/24 E55.9 - Vitamin D deficiency, unspecified, Z00.00 - Encounter for general adult medical examination without abnormal findings Referrals Genetics Referral D56.0 - Alpha thalassemia Rheumatology Referral R76.8 - Other specified abnormal immunological findings in serum Coding Level of Care Code Est Pt Level 4 (48558) Diagnoses Shift work sleep disorder G47.26 Pure hypercholesterolemia E78.00 Alpha thalassemia D56.0 ISAMAR positive R76.8 History of hypothyroidism Z86.39 Vitamin D deficiency E55.9 Osteopenia, unspecified location M85.80 Osteopenia location: unspecified Calcification of right breast on mammography R92.1 Smoker F17.200 Overweight (BMI 25.0-29.9) E66.3
== END 2023-11-24 16:09 | disposition home or self-care (01) ==
PROVIDERS: PCP Internal Medicine; Visit Provider Internal Medicine
DX: G47.26 Circadian rhythm sleep disorder, shift work type (principal); E78.00 Pure hypercholesterolemia, unspecified; D56.0 Alpha thalassemia; R76.8 Other specified abnormal immunological findings in serum; Z86.39 Personal history of other endocrine, nutritional and metabolic disease; E55.9 Vitamin D deficiency, unspecified; M85.80 Other specified disorders of bone density and structure, unspecified site; R92.1 Mammographic calcification found on diagnostic imaging of breast; F17.200 Nicotine dependence, unspecified, uncomplicated; E66.3 Overweight
CPT/HCPCS: 99214

== ENCOUNTER 2023-12-10 14:27 | Outpatient (REF) | payer OTHER, SELFPAY ==
--- NOTE | ~2023-12-10 | MM_ITS ---
EXAMINATION: MM DIAGNOSTIC DIGITAL BREAST TOMOSYNTHESIS, RIGHT CLINICAL INFORMATION: 6 month follow-up status post benign stereotactic biopsy of calcifications in the upper central right breast COMPARISON: Mammography: 05/27/2023, 06/01/2022. Stereotactic biopsy 06/18/2023. TECHNIQUE: Digital right breast tomosynthesis is performed in both the craniocaudal and mediolateral oblique views along with computer-aided detection (CAD). Synthesized 2D images are generated from the tomosynthesis. In addition, spot magnification 2-D right CC and ML views were obtained, as well as a full-field 3-D right mediolateral view. FINDINGS: The breasts are heterogeneously dense, which may obscure small masses (ACR BI-RADS breast composition Category c). Images demonstrate complete removal of full group of calcifications in the 12:00 axis of the right breast, mid depth. No residual or recurrent calcifications seen. There otherwise is skin and benign dystrophic calcifications present in the right breast. There are no parenchymal suspicious findings. There are no skin or axillary abnormalities. MM/MM tomosynthesis diagnostic RT IMPRESSION: No findings identified right breast suspicious for malignancy. Exam shows complete removal of small group of pleomorphic calcifications 6 months post biopsy. No residual calcifications. Recommend this patient resume routine annual screening mammography in 6 months. ASSESSMENT: BI-RADS BI-RADS 2 - Benign Findings RECOMMENDATION: 1 year F/U Results were provided to the patient at time of visit by the technologist. This patient's information was entered into a reminder system with a target due date for their next mammogram.
== END 2023-12-10 14:28 | disposition home or self-care (01) ==
LOC: HO.MAMMO 14:27
PROVIDERS: PCP Internal Medicine; Visit Provider Internal Medicine
DX: R92.1 Mammographic calcification found on diagnostic imaging of breast (principal)
CPT/HCPCS: 77061; 77065

== ENCOUNTER → 2023-12-10 14:30 | Outpatient (BNV) | payer OTHER, SELFPAY | PROVIDERS: PCP Internal Medicine; Visit Provider Radiology Diagnostic Radiology | DX: R92.1 Mammographic calcification found on diagnostic imaging of breast (principal) | CPT/HCPCS: 77061; 77065 ==

== ENCOUNTER 2024-05-24 14:34 | Outpatient (AMB) | payer OTHER, SELFPAY ==
[2024-05-24 14:35] VITALS: BP 120/82; PULSE 57; O2SAT 98; BMI 28.9
--- NOTE | 2024-05-24 14:35 | A.OFFPC_ITS ---
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 Required: No Accompanied by: Self / Same As Patient Allergies No Known Drug Allergies Allergy (Unknown, Verified 05/24/24 15:02) Unknown Medication List - Last Reconciled 05/25/24 by Jesus Suggs MD armodafinil (Nuvigil) 150 mg PO QAM 30 days cholecalciferol (vitamin D3) 50 mcg PO DAILY 90 days triamcinolone acetonide 0.5% 1 appl topical BID PRN Tobacco use date assessed: 05/24/24 Dental Screening Dental Screen Date: 05/24/24 Did you have a dental visit in the last 12 months?: No Did you have a dental problem in the last 6 months where you did not have access to dental care?: No Was dental information given to patient?: No HPI Annual Exam HPI Details Patient comes in today for her annual physical examination States that she feels okay She denies any headaches or dizziness Denies any chest pains, no shortness of breath No nausea/vomiting, no abdominal pain No change in bowel habits noted She denies any acute urinary symptoms She is scheduled for her annual mammogram next month (June 2024) She had a negative Cologuard test done in June 2023 and had her BMD done back in May 2022 She has not had her gynecology exam and pap smear done in a few years now - she has been referred to her aircraft servicer of choice in [place] last year but states that she was never contacted for an appointment [facility] Medical History Colon cancer screening Osteopenia Vitamin D deficiency Pure hypercholesterolemia Shift work sleep disorder Overweight (BMI 25.0-29.9) Smoker Hypothyroidism Surgical History History of lumpectomy of right breast History of surgery of uterus Family History Father Diabetes Stroke Hypertension Mother COPD (chronic obstructive pulmonary disease) Asthma Social History Housing: House Patient Tobacco Use Status: Former Tobacco user Years Smoked: Quit 10/24/2022 e-Cigarette/Vaping Use: Never Used Second Hand Smoke Exposure: Yes service: No Current occupational status: employed 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 1. Little interest or pleasure in doing things: not at all 2. Feeling down, depressed, or hopeless: not at all 3. Trouble falling or staying asleep, or sleeping too much: not at all 4. Feeling tired or having little energy: not at all 5. Poor appetite or overeating: not at all 6. Feeling bad about yourself - or that you are a failure or have let yourself or your family down: not at all 7. Trouble concentrating on things, such as reading the newspaper or watching television: not at all 8. Moving or speaking so slowly that other people could have noticed. Or the opposite - being so fidgety or restless that you have been moving around a lot more than usual: not at all 9. Thoughts that you would be better off or of hurting yourself in some way: not at all Total score: 0 Depression Screening Interpretation: Negative Depression Screening Done: Yes 97178 - PHQ-9 Billing: Yes Source: Developed by Drs. Tung Ayala, Paula Bro, Silas Tomlinson and colleagues, with an educational dilcia from [email or web address]. Thrive Questionnaire Date Thrive assessed: 05/24/24 I am a: Patient What is your living situation today?: I have a steady place to live Within the past 12 months, did the food you bought not last and you didn't have the money to get more?: Never true Within the past 12 months, did you worry whether your food would run out before you got money to buy more?: Never true Do you have trouble paying for medicines?: No Do you have trouble getting transportation to medical appointments?: No Do you have trouble paying your heating and electricity bill?: No Do you have trouble taking care of your child, family member or friend?: No Do you have trouble with day-to-day activities such as bathing, preparing meals, shopping, managing finances, etc.?: No Are you currently unemployed and looking for a job?: No Are you interested in more education?: No Please select the resources that you would like help with: None Currently or been in a relationship where the following occur: No concerns reported THRIVE Score: 0 AUDIT C Alcohol Use Questionnaire (AUDIT-C) 1. How often do you have a drink containing alcohol?: Never 2. How many drinks containing alcohol do you have on a typical day when you are drinking?: 1 or 2 3. How often do you have six or more drinks on one occasion?: Never Total Score: 0 Score Reviewed/Action Taken: Yes TRA-7 AMB Questionnaire TRA-7 Date TRA - 7 assessed: 05/24/24 Feeling nervous, anxious, or on edge: 0 = Not at all Not being able to stop or control worryin = Not at all Worrying too much about different things: 0 = Not at all Trouble relaxin = Not at all Being so restless that it is hard to sit still: 0 = Not at all Becoming easily annoyed or irritable: 0 = Not at all Feeling afraid as if something awful might happen: 0 = Not at all Total TRA-7 score (0-4 normal; 5-9 mild; 10-14 moderate; 15-21 severe): 0 Source: Developed by Drs. Tung Ayala, Paula Bro, Silas Tomlinson and colleagues, with an educational dilcia from [email or web address]. Review of Systems Const Denies chills, Denies fatigue, Denies fever(s), Denies headache(s) and Denies malaise Eyes Denies blurry vision, Denies change in vision, Denies irritation and Denies itchy eyes ENT Denies dysphagia, Denies dizziness, Denies otalgia, Denies headache(s), Denies nasal congestion, Denies neck pain, Denies odynophagia, Denies sinus pain and Denies sore throat Card Denies chest pain, Denies rapid heart rate, Denies irregular heart rhythm, Denies palpitations and Denies dyspnea Resp Denies chest congestion, Denies cough, Denies dyspnea and Denies wheezing GI Denies abdominal pain, Denies bloating, Denies constipation, Denies dysphagia, Denies heartburn, Denies diarrhea, Denies nausea, Denies odynophagia and Denies vomiting Denies hematuria, Denies urinary frequency, Denies dysuria, Denies urinary incontinence and Denies urinary urgency Musc Denies back pain, Denies arthralgias, Denies joint swelling, Denies muscle weakness and Denies neck pain Skin/Breast Denies breast pain, Denies breast mass, Denies change in pigmentation, Denies lesions, Denies rash and Denies unusual bruising Neuro Denies dizziness, Denies headache(s) and Denies paresthesias Psych Denies anxiety and Denies depression Endo Denies fatigue and Denies palpitations Bassam/Lymph Denies easy bruising Aller/Immun Denies itchy eyes and Denies wheezing Physical exam (Primary Care) Vital Signs: Last Vital Signs Pulse 57 05/24/24 14:35 BP 120/82 05/24/24 14:35 Pulse Ox 98 05/24/24 14:35 Oxygen Delivery Method Room Air 05/24/24 14:35 BMI result Body Mass Index 28.9 Tobacco/Smoking Status: Tobacco use Status Tobacco use date assessed 05/24/24 05/24/24 14:37 Patient Tobacco Use Status Former Tobacco user 05/24/24 14:37 e-Cigarette/Vaping Use Never Used 05/24/24 14:46 PHQ-9: PHQ-9 Score PHQ-9: Total score 0 05/24/24 15:37 Depression Screening Interpretation: Negative Thrive Assessment: Date of Thrive Assessment Date Thrive assessed 05/24/24 05/24/24 14:37 Currently or been in a relationship where the following occur: No concerns reported Const General: no acute distress, alert and awake Orientation/consciousness: patient oriented x3 HENMT Head: Yes normocephalic and Yes atraumatic Ears: external ears normal, TM's normal bilaterally and EAC's normal General nose exam: No nasal discharge present Face and sinus: Yes normal facial exam and Yes sinuses nontender Teeth and gingiva: dentition normal Throat: Yes posterior oropharynx normal and Yes tonsils normal (no TP congestion) Eyes Eyelids: Yes eyelids normal Conjunctivae: conjunctivae normal Pupils: Equal, round and reactive pupils present EOM: EOMs intact bilaterally Neck Neck: Yes no lymphadenopathy and Yes supple Thyroid: Thyroid normal Resp Auscultation: clear to auscultation bilaterally, no rales and no wheezes Cardio Rate: regular rate Rhythm: regular rhythm Heart sounds: no murmurs GI Palpation (GI): Soft to palpation, nontender and No hepatosplenomegaly present Auscultation: normal bowel sounds General: Yes no CVA tenderness Back/Spine/Pelvis Back: no CVA tenderness Thoracic/Lumbar Spine: thoracic and lumbar spine normal to inspection Skin Lesions: no lesions Rashes: no rashes Neuro General: patient oriented x3, moves all extremities, no focal motor deficits and CN's II-XI intact bilaterally Cranial nerves: Yes Equal, round and reactive pupils present Cognition (Neuro): normal cognition Gait exam (Neuro): Normal gait present Extrem General: Yes no clubbing, cyanosis or edema Office Procedures Flu Questionnaire Does the patient have a severe egg allergy?: No Immunizations Fluarix Triv [id number] (PF) 45 mcg (15 mcg x 3)/0.5 mL IM syringe Performing Provider: Jesus Suggs MD [facility] Documented (not given) by: STAR Henson on 05/24/24 14:46 Reason Not Given: Patient Refused Coding Level of Care Code Est Pt Prev Care 40-64y(39949) Diagnoses Annual physical exam Z00.00 Pure hypercholesterolemia E78.00 Shift work sleep disorder G47.26 Alpha thalassemia D56.0 ISAMAR positive R76.8 Vitamin D deficiency E55.9 History of hypothyroidism Z86.39 Osteopenia, unspecified location M85.80 Osteopenia location: unspecified Calcification of right breast on mammography R92.1 Smoker F17.200 Overweight (BMI 25.0-29.9) E66.3 Cervical cancer screening Z12.4 Assessment & Plan Assessment & Plan (1) Annual physical exam: Code(s): Z00.00 - Encounter for general adult medical examination without abnormal findings Category: Medical Plan: Check labs She is scheduled for her annual mammogram next month (June 2024) She had a negative Cologuard test done in June 2023 and had her BMD done back in May 2022 She has not had her gynecology exam and pap smear done in a few years now - she has been referred to her aircraft servicer of choice in [place] last year bu t states that she was never contacted for an appointment (2) Pure hypercholesterolemia: Code(s): E78.00 - Pure hypercholesterolemia, unspecified Category: Medical Plan: Reinforced low cholesterol diet Her total cholesterol level was still elevated at 241 mg/dl and LDL cholesterol at 149 mg/dl when they were last checked in May 2023 We will recheck her labs and fasting lipids NOLVIA for follow up and advised that if her numbers do not continue to improve significantly or if they regress and go back up, then she should consider starting on Rx for her high cholesterol (3) Shift work sleep disorder: Code(s): 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, shift work type Category: Medical Plan: Patient has had difficulty sleeping over the years, most likely due to shift- work sleep disorder 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 Continue Nuvigil 150 mg Q AM - states that her sleep has gotten a lot better since she was trialed on Nuvigil a couple of years ago but she tries to take this only as needed and prefers not to take it on a daily basis (4) Alpha thalassemia: Code(s): D56.0 - Alpha thalassemia Category: Medical Plan: Her previous work ups done revealed results consistent with alpha thalassemia As she is not anemic and has no other pertinent symptoms, no further intervention is needed at this time but she has been referred for genetic counseling - unclear if this was ever performed as we have not received any correspondence regarding this so far (5) ISAMAR positive: Code(s): R76.8 - Other specified abnormal immunological findings in serum Category: Medical Plan: Patient's labs done back a year ago in May 2023 came out positive for ISAMAR, suggesting the possibility of lupus She was referred to rheumatology ([facility], per her choice) for further evaluation and management and she is scheduled to be seen in a couple of weeks (6) Vitamin D deficiency: Code(s): E55.9 - Vitamin D deficiency, unspecified Category: Medical Plan: Continue Vitamin D3 2000 units QD (7) History of hypothyroidism: Code(s): Z86.39 - Personal history of other endocrine, nutritional and metabolic disease Category: Medical Plan: She was taking Synthroid in the past but stopped taking it on her own a few years ago - reports that she's had no problems since coming off Rx Her TFTs checked last year came out normal, so she did NOT need to go back on any thyroid hormone replacements or supplements at the time Will recheck her TFTs for follow up (8) Osteopenia: Code(s): M85.80 - Other specified disorders of bone density and structure, unspecified site Category: Medical Qualifiers: Osteopenia location: unspecified Qualified Code(s): M85.80 - Other specified disorders of bone density and structure, unspecified site Plan: Patient's baseline BMD done in 2021 revealed (+) osteopenia based on the lowest T-score value of -1.7 in the lumbar spine Her 10-year FRAX score = major osteoporotic fracture (clinical spine, forearm, hip or shoulder) 7.0% and Hip fracture 1.1% Have advised patient to continue on her daily vitamin-D intake and to also start taking oral Calcium supplements of at least 1000 to 1200 mg daily She is also encouraged to stay active and exercise regularly Will recheck her BMD next year and if her BMD declines further, will consider starting her on oral bisphosphonates Osteopenia based on the lowest T-score value of -1.7 in the lumbar spine applying World Health Organization criteria. 2. 10-YEAR FRACTURE RISK PREDICTION, FRAX: Major osteoporotic fracture (clinical spine, forearm, hip or shoulder) 7.0%. Hip fracture 1.1%. (9) Calcification of right breast on mammography: Code(s): R92.1 - Mammographic calcification found on diagnostic imaging of breast Category: Medical Plan: Patient had some calcifications on her right breast that was first noticed on routine mammogram done back in May 2022 and these were confirmed on additional views She underwent stereotactic Bx in June 2023 and pathology came out benign - (+) usual ductal hyperplasia with calcifications at tissue edge; sclerosing adenosis and dense stromal fibrosis She is scheduled for her repeat/follow up mammogram in a few weeks (10) Smoker: Code(s): F17.200 - Nicotine dependence, unspecified, uncomplicated Category: Social Hx Plan: Counseled again on smoking cessation (11) Overweight (BMI 25.0-29.9): Code(s): E66.3 - Overweight Category: Medical Plan: Reinforced diet/exercise as tolerated/lose weight (12) Cervical cancer screening: Code(s): Z12.4 - Encounter for screening for malignant neoplasm of cervix Category: Medical Plan: Will refer patient to the [facility] at [facility] to get her annual pap smear and gynecology exam updated NOLVIA Plan Follow up in 6 months Orders: Orders Lipid Panel 05/24/24 E78.00 - Pure hypercholesterolemia, unspecified, Z00.00 - Encounter for general adult medical examination without abnormal findings Comprehensive [place]. Panel Fast 05/24/24 E78.00 - Pure hypercholesterolemia, unspecified, Z00.00 - Encounter for general adult medical examination without abnormal findings UA CC w/rflx Micro + Cult 05/24/24 R30.0 - Dysuria, Z00.00 - Encounter for general adult medical examination without abnormal findings Thyroid Stimulating Hormone 05/24/24 E03.9 - Hypothyroidism, unspecified, Z00.00 - Encounter for general adult medical examination without abnormal findings Vitamin D 25-OH Total 05/24/24 E55.9 - Vitamin D deficiency, unspecified, Z00.00 - Encounter for general adult medical examination without abnormal findings Hemoglobin A1c 05/24/24 E11.9 - Type 2 diabetes mellitus without complications, Z00.00 - Encounter for general adult medical examination without abnormal findings Influenza [id number] Immunization 05/24/24 Z23 - Encounter for immunization Complete Blood Count Auto Diff 05/24/24 D64.9 - Anemia, unspecified, Z00.00 - Encounter for general adult medical examination without abnormal findings Free T4 (Free Thyroxine) 05/24/24 E03.9 - Hypothyroidism, unspecified, Z00.00 - Encounter for general adult medical examination without abnormal findings Vitamin B12 and Folate 05/24/24 E53.8 - Deficiency of other specified B group vitamins, Z00.00 - Encounter for general adult medical examination without abnormal findings Referrals [employer] Referral Z12.4 - Encounter for screening for malignant neoplasm of cervix
== END 2024-05-24 15:14 | disposition home or self-care (01) ==
PROVIDERS: PCP Internal Medicine; Visit Provider Internal Medicine
DX: Z00.00 Encounter for general adult medical examination without abnormal findings (principal); D56.0 Alpha thalassemia; F17.210 Nicotine dependence, cigarettes, uncomplicated; Z68.28 Body mass index [BMI] 28.0-28.9, adult; E78.00 Pure hypercholesterolemia, unspecified; G47.26 Circadian rhythm sleep disorder, shift work type; R76.8 Other specified abnormal immunological findings in serum; E55.9 Vitamin D deficiency, unspecified; E66.3 Overweight; Z86.39 Personal history of other endocrine, nutritional and metabolic disease; M85.80 Other specified disorders of bone density and structure, unspecified site; R92.1 Mammographic calcification found on diagnostic imaging of breast

== ENCOUNTER 2024-05-24 14:34 | Outpatient (REF) | payer OTHER, SELFPAY ==
[2024-05-24 15:38] LABS: MANUAL DIFF FLAG NO
[2024-05-24 15:56] LABS: Basophils Absolute Auto 0.1 X10*3/uL (0.0-0.2); Basophils Percent Auto 1.4 % (0-2); Eosinophils Absolute Auto 0.4 X10*3/uL (0.0-0.4); Eosinophils Percent Auto 4.4 % (0-4); Hematocrit 39.1 % (37.0-47.0); Hemoglobin 11.9 g/dl (12.0-16.0); Imm Gran Abs Auto 0.02 X10*3/uL (0.00-0.03); Imm Gran Pct Auto 0.2 % (0.0-0.4); Lymphocytes Absolute Auto 3.2 X10*3/uL (1.2-4.9); Lymphocytes Percent Auto 38.6 % (20-40); Mean Corpuscular HGB Conc 30.4 g/dl (31.0-35.0); Mean Corpuscular Hemoglobin 19.4 pg (27.0-33.0); Mean Platelet Volume 9.7 fL (9.4-12.3); Monocytes Absolute Auto 0.7 X10*3/uL (0.1-1.2); Monocytes Percent Auto 8.1 % (2-11); Neutrophils Percent Auto 47.3 % (45-73); Platelet Count 249 X10*3/uL (160-400); Red Blood Count 6.14 X10*6/uL (4.20-5.50); White Blood Count 8.4 X10*3/uL (4.8-10.8)
[2024-05-24 16:19] LABS: Mean Corpuscular Volume 63.7 fL (80.0-98.0)
[2024-05-24 16:36] LABS: Alanine Aminotransferase 23 U/L (0-31); Albumin Level 4.2 g/dL (3.5-5.0); Alkaline Phosphatase 80 U/L (39-117); Anion Gap 12 (12-20); Aspartate Amino Transferase 22 U/L (5-31); Bilirubin Total 0.3 mg/dL (0.0-1.0); Blood Urea Nitrogen 14 mg/dL (9-16); Calcium 9.6 mg/dL (8.4-10.2); Carbon Dioxide 26 mmol/L (22-29); Chloride 108 mmol/L (96-108); Cholesterol 247 mg/dL (<200); Estimated Glomerular Filt Rate > 60; Glucose Fasting 84 mg/dL (60-99); HDL Cholesterol 72 mg/dL (>40); Iron 59 mcg/dL (30-160); LDL Cholesterol Calculated 161 mg/dL (<100); Percent Iron Saturation 21 % (15-50); Potassium 3.9 mmol/L (3.3-5.1); Sodium 142 mmol/L (135-145); Total Iron Binding Capacity 279 mcg/dL (228-428); Total Protein 7.4 g/dL (6.5-8.0); Triglycerides 74 mg/dL (<150); Unsaturated Iron Binding 220 ug/dL
[2024-05-24 16:36] LABS: Appearance Urine Clear; Color Urine Yellow; Glucose Urine UA Negative (Negative); Leukocyte Esterase Urine Negative (Negative); Nitrite Urine Negative (Negative); PH 6.5 (5.0-9.0); Specific Gravity - Urine <= 1.005 (1.005-1.025); UMIC TRIGGER UACC YES; Urine Blood Small (1+) (Negative); Urine Ketones Negative (Negative); Urine Protein Negative (Neg-Trace)
[2024-05-24 16:47] LABS: Bacteria Urine None Seen (None Seen); Hyaline Casts Urine 0-2 /LPF (0-2); Squamous Epithelial Cell Urine 0-2 /HPF (0-2); WBC Urine 0-5 /HPF (0-5)
[2024-05-24 16:50] LABS: Estimated Average Glucose 111 mg/dL; Hemoglobin A1C 112.3536 umol/L; Hemoglobin A1c % 5.5 % (<6.0); Total Hemoglobin (HGBA1C) 3077.7127 umol/L
[2024-05-24 16:55] LABS: TSH reflex Free T4 4.84 uIU/mL (0.32-4.0); Thyroid Stimulating Hormone 4.84 uIU/mL (0.32-4.0); Vitamin D 25-OH Total 44.3 ng/mL (>30)
[2024-05-24 17:02] LABS: Folate 8.2 ng/mL (> or = 4.0); Vitamin B12 653 pg/mL (200-900)
== END 2024-05-24 14:35 | disposition home or self-care (01) ==
LOC: HO.LAB 14:34
PROVIDERS: PCP Internal Medicine; Visit Provider Internal Medicine
DX: Z00.00 Encounter for general adult medical examination without abnormal findings (principal); D50.9 Iron deficiency anemia, unspecified; E78.00 Pure hypercholesterolemia, unspecified; E55.9 Vitamin D deficiency, unspecified; E11.9 Type 2 diabetes mellitus without complications; D64.9 Anemia, unspecified; E53.8 Deficiency of other specified B group vitamins; E03.9 Hypothyroidism, unspecified; G47.26 Circadian rhythm sleep disorder, shift work type; D56.0 Alpha thalassemia; R76.8 Other specified abnormal immunological findings in serum; M85.80 Other specified disorders of bone density and structure, unspecified site; R92.1 Mammographic calcification found on diagnostic imaging of breast; E66.3 Overweight; F17.200 Nicotine dependence, unspecified, uncomplicated; Z86.39 Personal history of other endocrine, nutritional and metabolic disease; Z71.6 Tobacco abuse counseling
CPT/HCPCS: 36415; 80053; 80061; 81001; 81003; 82306; 82607; 82746; 83036; 83540; 84439; 84443; 85025; 90471; 96127

== ENCOUNTER 2024-06-21 14:45 | Outpatient (REF) | payer OTHER, SELFPAY ==
--- NOTE | ~2024-06-21 | MM_ITS ---
EXAMINATION: MM SCREENING DIGITAL BREAST TOMOSYNTHESIS, BILATERAL CLINICAL INFORMATION: Screening. Asymptomatic. COMPARISON: Mammography: Comparison is made with available priors TECHNIQUE: Digital breast mammography with tomosynthesis is performed in both the craniocaudal and mediolateral oblique views along with computer-aided detection (CAD). FINDINGS: The breasts are heterogeneously dense, which may obscure small masses (ACR BI-RADS breast composition Category c). Right marker clip. There are no significant masses, abnormal calcifications, or other abnormalities. MM/MM tomosynthesis screening BI IMPRESSION: No mammographic evidence of malignancy. ASSESSMENT: BI-RADS BI-RADS 2 - Benign Findings RECOMMENDATION: Routine annual mammography screening. 1 year F/U This examination should not preclude the clinical evaluation of a suspicious palpable abnormality. This patient's information was entered into a reminder system with a target due date for their next mammogram. Electronically signed by: Krystyna Ureña DO 06/30/2024 08:45 AM TATI
== END 2024-06-21 14:46 | disposition home or self-care (01) ==
LOC: HO.MAMMO 14:45
PROVIDERS: PCP Internal Medicine; Visit Provider Internal Medicine
DX: Z12.31 Encounter for screening mammogram for malignant neoplasm of breast (principal)
CPT/HCPCS: 77063; 77067

== ENCOUNTER → 2024-06-21 15:00 | Outpatient (BNV) | payer OTHER, SELFPAY | PROVIDERS: PCP Internal Medicine; Visit Provider Internal Medicine | DX: Z12.31 Encounter for screening mammogram for malignant neoplasm of breast (principal) | CPT/HCPCS: 77063; 77067 ==

== ENCOUNTER 2024-11-29 14:03 | Outpatient (AMB) | payer OTHER, SELFPAY ==
--- NOTE | 2024-11-29 14:06 | A.OFFPC_ITS ---
Vital Signs 11/29/24 14:07 Height 5 ft 4 in Weight 170 lb 2 oz BMI 29.2 BP 110/80 Blood Pressure Location Lt brachial Position Sitting Pulse 61 Pulse Source Pulse Oximeter Pulse Oximetry (%) 99 Oxygen Delivery Method Room Air Intake Visit Reasons: 6 Months f/u Manager Critical Care Unit Required: No Accompanied by: Self / Same As Patient Allergies No Known Drug Allergies Allergy (Unknown, Verified 11/29/24 14:35) Unknown Medication List - Last Reconciled 11/29/24 by Jesus Suggs MD armodafinil (Nuvigil) 150 mg PO QAM 30 days cholecalciferol (vitamin D3) 50 mcg PO DAILY 90 days triamcinolone acetonide 0.5% 1 appl topical BID PRN Tobacco use date assessed: 11/29/24 Dental Screening Dental Screen Date: 11/29/24 Did you have a dental visit in the last 12 months?: Yes Did you have a dental problem in the last 6 months where you did not have access to dental care?: No Was dental information given to patient?: Patient has dentist HPI 6 Months f/u HPI Details Patient comes in today for her follow-up visit States that she feels okay She denies any headaches or dizziness Denies any chest pains, no shortness of breath No nausea/vomiting, no abdominal pain No change in bowel habits noted She reports experiencing increased urinary urgency and frequency for the past few days and is concerned that she may have a UTI Patient states that she got her labs done immediately after her last visit and has no other follow-up labs ordered for this appointment REPLACED BY [facility] Medical History Colon cancer screening Osteopenia Vitamin D deficiency Pure hypercholesterolemia Shift work sleep disorder Overweight (BMI 25.0-29.9) Smoker Hypothyroidism Surgical History History of lumpectomy of right breast History of surgery of uterus Family History Father Diabetes Stroke Hypertension Mother COPD (chronic obstructive pulmonary disease) Asthma Social History Housing: House Patient Tobacco Use Status: Former Tobacco user Years Smoked: Quit 10/24/2022 e-Cigarette/Vaping Use: Never Used Second Hand Smoke Exposure: Yes service: No Current occupational status: employed 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 1. Little interest or pleasure in doing things: not at all 2. Feeling down, depressed, or hopeless: not at all 3. Trouble falling or staying asleep, or sleeping too much: not at all 4. Feeling tired or having little energy: not at all 5. Poor appetite or overeating: not at all 6. Feeling bad about yourself - or that you are a failure or have let yourself or your family down: not at all 7. Trouble concentrating on things, such as reading the newspaper or watching television: not at all 8. Moving or speaking so slowly that other people could have noticed. Or the opposite - being so fidgety or restless that you have been moving around a lot more than usual: not at all 9. Thoughts that you would be better off or of hurting yourself in some way: not at all Total score: 0 Depression Screening Interpretation: Negative Depression Screening Done: Yes 98211 - PHQ-9 Billing: Yes Source: Developed by Drs. Tung Ayala, Paula Bro, Silas Tomlinson and colleagues, with an educational dilcia from [employer]. Thrive Questionnaire Date Thrive assessed: 11/29/24 I am a: Patient What is your living situation today?: I have a steady place to live Within the past 12 months, did the food you bought not last and you didn't have the money to get more?: Never true Within the past 12 months, did you worry whether your food would run out before you got money to buy more?: Never true Do you have trouble paying for medicines?: No Do you have trouble getting transportation to medical appointments?: No Do you have trouble paying your heating and electricity bill?: No Do you have trouble taking care of your child, family member or friend?: No Do you have trouble with day-to-day activities such as bathing, preparing meals, shopping, managing finances, etc.?: No Are you currently unemployed and looking for a job?: No Are you interested in more education?: No Please select the resources that you would like help with: None Currently or been in a relationship where the following occur: No concerns reported THRIVE Score: 0 AUDIT C Alcohol Use Questionnaire (AUDIT-C) 1. How often do you have a drink containing alcohol?: Monthly or less 2. How many drinks containing alcohol do you have on a typical day when you are drinking?: 1 or 2 3. How often do you have six or more drinks on one occasion?: Never Total Score: 1 Score Reviewed/Action Taken: Yes TRA-7 AMB Questionnaire TRA-7 Date TRA - 7 assessed: 11/29/24 Feeling nervous, anxious, or on edge: 0 = Not at all Not being able to stop or control worryin = Not at all Worrying too much about different things: 0 = Not at all Trouble relaxin = Not at all Being so restless that it is hard to sit still: 0 = Not at all Becoming easily annoyed or irritable: 0 = Not at all Feeling afraid as if something awful might happen: 0 = Not at all Total TRA-7 score (0-4 normal; 5-9 mild; 10-14 moderate; 15-21 severe): 0 Source: Developed by Drs. Tung Ayala, Paula Bro, Silas Tomlinson and colleagues, with an educational dilcia from [employer]. Review of Systems Const Denies chills, Denies fatigue, Denies fever(s) and Denies headache(s) ENT Denies dysphagia, Denies dizziness, Denies otalgia, Denies headache(s), Denies neck pain, Denies odynophagia and Denies sore throat Card Denies chest pain, Denies irregular heart rhythm, Denies palpitations and Denies dyspnea Resp Denies chest congestion, Denies cough and Denies dyspnea GI Denies abdominal pain, Denies constipation, Denies dysphagia, Denies heartburn, Denies diarrhea, Denies nausea, Denies odynophagia and Denies vomiting Denies urinary frequency, Reports nocturia, Denies dysuria and Reports urinary urgency Musc Denies back pain, Denies arthralgias and Denies neck pain Skin/Breast Denies rash Neuro Denies dizziness, Denies headache(s) and Denies paresthesias Psych Denies anxiety and Denies depression Endo Denies fatigue and Denies palpitations Bassam/Lymph Denies easy bruising Physical exam (Primary Care) Vital Signs: Last Vital Signs Pulse 61 11/29/24 14:07 BP 110/80 11/29/24 14:07 Pulse Ox 99 11/29/24 14:07 Oxygen Delivery Method Room Air 11/29/24 14:07 BMI result Body Mass Index 29.2 Tobacco/Smoking Status: Tobacco use Status Tobacco use date assessed 11/29/24 11/29/24 14:14 Patient Tobacco Use Status Former Tobacco user 11/29/24 14:14 e-Cigarette/Vaping Use Never Used 11/29/24 14:14 PHQ-9: PHQ-9 Score PHQ-9: Total score 0 11/29/24 14:48 Depression Screening Interpretation: Negative Thrive Assessment: Date of Thrive Assessment Date Thrive assessed 11/29/24 11/29/24 14:14 Currently or been in a relationship where the following occur: No concerns reported Const General: no acute distress and alert HENMT Ears: TM's normal bilaterally and EAC's normal Throat: Yes posterior oropharynx normal and Yes tonsils normal (no TP congestion) Neck Neck: Yes supple and No lymphadenopathy Thyroid: Thyroid normal Resp Auscultation: clear to auscultation bilaterally, no rales and no wheezes Cardio Rate: regular rate Rhythm: regular rhythm Heart sounds: no murmurs GI Palpation (GI): Soft to palpation and nontender Auscultation: normal bowel sounds General: Yes no CVA tenderness Back/Spine/Pelvis Back: no CVA tenderness Thoracic/Lumbar Spine: No lumbar spinal tenderness Skin Rashes: no rashes Extrem General: Yes no clubbing, cyanosis or edema Coding Level of Care Code Est Pt Level 4 (38232) Complex EM visit Add On G2211 Diagnoses Pure hypercholesterolemia E78.00 Shift work sleep disorder G47.26 Alpha thalassemia D56.0 ISAMAR positive R76.8 Vitamin D deficiency E55.9 History of hypothyroidism Z86.39 Osteopenia, unspecified location M85.80 Osteopenia location: unspecified Calcification of right breast on mammography R92.1 Urinary tract infection without hematuria, site unspecified N39.0 Urinary tract infection type: site unspecified Hematuria presence: without hematuria Smoker F17.200 Overweight (BMI 25.0-29.9) E66.3 Additional Codes PHQ-9 - 06601 - PHQ-9 Billing: Yes ([id number]) Assessment & Plan Assessment & Plan (1) Pure hypercholesterolemia: Code(s): E78.00 - Pure hypercholesterolemia, unspecified Category: Medical Plan: Reinforced low cholesterol diet Her total cholesterol level was still elevated at 241 mg/dl and LDL cholesterol at 161 mg/dl when they were last checked in May 2024 Patient still declines to being started on cholesterol-lowering medications We will recheck her labs and fasting lipids NOLVIA for follow up and advised that if her numbers do not continue to improve significantly, then she should consider starting on Rx for her high cholesterol Will also check her lipoprotein a level with her next lab draw to give some more helpful information and to assess her urgency in starting on cholesterol- lowering therapy (2) Shift work sleep disorder: Code(s): 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, shift work type Category: Medical Plan: Patient has had difficulty sleeping over the years, most likely due to shift- work sleep disorder as 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 Continue Nuvigil 150 mg Q AM - states that her sleep has gotten a lot better since she was trialed on Nuvigil a couple of years ago but she tries to take this only as needed and prefers not to take it on a daily basis (3) Alpha thalassemia: Code(s): D56.0 - Alpha thalassemia Category: Medical Plan: Her previous work ups done revealed results consistent with alpha thalassemia As she is not anemic and has no other pertinent symptoms, no further intervention is needed at this time but she has been referred for genetic counseling - unclear if this was ever performed as we have not received any correspondence regarding this so far (4) ISAMAR positive: Code(s): R76.8 - Other specified abnormal immunological findings in serum Category: Medical Plan: Patient's labs done back over a year ago in May 2023 came out positive for ISAMAR, suggesting the possibility of lupus She was referred to rheumatology ([facility], per her choice) for further evaluation and management and was seen by them last month (October 2024) - she was reportedly advised that she does not have any evidence of any inflammatory joint disease She was sent for additional workups for further evaluation and these all came back negative (5) Vitamin D deficiency: Code(s): E55.9 - Vitamin D deficiency, unspecified Category: Medical Plan: Continue Vitamin D3 2000 units QD (6) History of hypothyroidism: Code(s): Z86.39 - Personal history of other endocrine, nutritional and metabolic disease Category: Medical Plan: She was taking Synthroid in the past but stopped taking it on her own a few years ago - reports that she's had no problems since coming off Rx Her TFTs checked last year came out normal, so she did NOT need to go back on any thyroid hormone replacements or supplements at the time Will recheck her TFTs for follow up (7) Osteopenia: Code(s): M85.80 - Other specified disorders of bone density and structure, unspecified site Category: Medical Qualifiers: Osteopenia location: unspecified Qualified Code(s): M85.80 - Other specified disorders of bone density and structure, unspecified site Plan: Patient's baseline BMD done in 2021 revealed (+) osteopenia based on the lowest T-score value of -1.7 in the lumbar spine Her 10-year FRAX score = major osteoporotic fracture (clinical spine, forearm, hip or shoulder) 7.0% and Hip fracture 1.1% Have advised patient to continue on her daily vitamin-D intake and to also start taking oral Calcium supplements of at least 1000 to 1200 mg daily She is also encouraged to stay active and exercise regularly Will recheck her BMD later this year and if her BMD declines further, will consider starting her on oral bisphosphonates (8) Calcification of right breast on mammography: Code(s): R92.1 - Mammographic calcification found on diagnostic imaging of breast Category: Medical Plan: Patient had some calcifications on her right breast that was first noticed on routine mammogram done back in May 2022 and these were confirmed on additional views She underwent stereotactic Bx in June 2023 and pathology came out benign - (+) usual ductal hyperplasia with calcifications at tissue edge; sclerosing adenosis and dense stromal fibrosis She is scheduled for her repeat/follow up mammogram in a few weeks (9) Urinary tract infection: Code(s): N39.0 - Urinary tract infection, site not specified Category: Medical Qualifiers: Urinary tract infection type: site unspecified Hematuria presence: without hematuria Qualified Code(s): N39.0 - Urinary tract infection, site not specified Plan: Patient is encouraged to increase her oral fluids Will go ahead and start patient empirically on Cipro 500 mg BID x 7 days (10) Smoker: Code(s): F17.200 - Nicotine dependence, unspecified, uncomplicated Category: Social Hx Plan: Patient is counseled again on complete smoking cessation (11) Overweight (BMI 25.0-29.9): Code(s): E66.3 - Overweight Category: Medical Plan: Reinforced diet/exercise as tolerated/lose weight Plan To return in 6 months for her next annual physical examination Orders: Orders Complete Blood Count Auto Diff 6 Months D64.9 - Anemia, unspecified, Z00.00 - Encounter for general adult medical examination without abnormal findings Comprehensive [place]. Panel Fast 6 Months E78.00 - Pure hypercholesterolemia, unspecified, Z00.00 - Encounter for general adult medical examination without abnormal findings TSH reflex Free T4 6 Months E78.00 - Pure hypercholesterolemia, unspecified, Z00.00 - Encounter for general adult medical examination without abnormal findings UA CC w/rflx Micro + Cult 6 Months R30.0 - Dysuria, Z00.00 - Encounter for general adult medical examination without abnormal findings Vitamin B12 and Folate 6 Months E53.8 - Deficiency of other specified B group vitamins, Z00.00 - Encounter for general adult medical examination without abnormal findings Lipoprotein A 6 Months E78.00 - Pure hypercholesterolemia, unspecified Lipid Panel 6 Months E78.00 - Pure hypercholesterolemia, unspecified, Z00.00 - Encounter for general adult medical examination without abnormal findings Vitamin D 25-OH Total 6 Months E55.9 - Vitamin D deficiency, unspecified, Z00.00 - Encounter for general adult medical examination without abnormal findings Referrals [facility] Referral Z12.4 - Encounter for screening for malignant neoplasm of cervix Medications: New ciprofloxacin HCl 500 mg PO BID 7 days 14 tabs 0RF
[2024-11-29 14:07] VITALS: BP 110/80; PULSE 61; O2SAT 99; BMI 29.2
--- OUTSIDE RECORDS SUMMARY | 2024-11-29 16:55 | XMS_ITS | Continuity of Care Document ---
Author Organization [facility] Address [address] [place] [id number] Problems Condition ICD9 code ICD10 code SNOMED code Start Date End Date S tatus Encounter for screening for other metabolic disorders Z13.228 Results No Results Allergies, adverse reactions, alerts No known allergies and adverse reactions Medications No administered medications reported Vital Signs No vital signs reported Social History No smoking Hx information available
== END 2024-11-29 14:58 | disposition home or self-care (01) ==
LOC: HO.HMCH 14:04
PROVIDERS: PCP Internal Medicine; Visit Provider Internal Medicine
DX: E78.00 Pure hypercholesterolemia, unspecified (principal); G47.26 Circadian rhythm sleep disorder, shift work type; D56.0 Alpha thalassemia; R76.8 Other specified abnormal immunological findings in serum; E55.9 Vitamin D deficiency, unspecified; Z86.39 Personal history of other endocrine, nutritional and metabolic disease; M85.80 Other specified disorders of bone density and structure, unspecified site; R92.1 Mammographic calcification found on diagnostic imaging of breast; N39.0 Urinary tract infection, site not specified; F17.200 Nicotine dependence, unspecified, uncomplicated; E66.3 Overweight

== ENCOUNTER → 2024-11-29 14:03 | Outpatient (BNVA) | payer OTHER, SELFPAY | PROVIDERS: PCP Internal Medicine; Visit Provider Internal Medicine | DX: E78.00 Pure hypercholesterolemia, unspecified (principal); G47.26 Circadian rhythm sleep disorder, shift work type; D56.0 Alpha thalassemia; E76.8 Other disorders of glucosaminoglycan metabolism; E55.9 Vitamin D deficiency, unspecified; M85.80 Other specified disorders of bone density and structure, unspecified site; R92.1 Mammographic calcification found on diagnostic imaging of breast; N39.0 Urinary tract infection, site not specified; E66.3 Overweight; Z68.29 Body mass index [BMI] 29.0-29.9, adult; F17.200 Nicotine dependence, unspecified, uncomplicated; Z86.39 Personal history of other endocrine, nutritional and metabolic disease; Z79.899 Other long term (current) drug therapy | CPT/HCPCS: 96127 ==

== ENCOUNTER 2025-05-31 11:54 | Outpatient (REF) | payer OTHER, SELFPAY ==
[2025-05-31 12:14] LABS: MANUAL DIFF FLAG NO
[2025-05-31 12:25] LABS: Hematocrit 44.8 % (37.0-47.0); Hemoglobin 13.5 g/dl (12.0-16.0); Imm Gran Abs Auto 0.02 X10*3/uL (0.00-0.03); Imm Gran Pct Auto 0.2 % (0.0-0.4); Lymphocytes Absolute Auto 3.1 X10*3/uL (1.2-4.9); Mean Corpuscular HGB Conc 30.1 g/dl (31.0-35.0); Mean Corpuscular Hemoglobin 19.1 pg (27.0-33.0); NRBC Abs Auto 0.000 X10*3/uL (0.0-0.012); NRBC Pct Auto 0.0 /100WBC (0.0-0.2); Platelet Count 328 X10*3/uL (160-400); Red Blood Count 7.08 X10*6/uL (4.20-5.50); White Blood Count 8.5 X10*3/uL (4.8-10.8)
[2025-05-31 12:28] LABS: Mean Corpuscular Volume 63.3 fL (80.0-98.0)
[2025-05-31 12:32] LABS: Appearance Urine Cloudy; Glucose Urine UA Negative (Negative); PH 5.5 (5.0-9.0); Specific Gravity - Urine 1.020 (1.005-1.025); UMIC TRIGGER UACC YES
[2025-05-31 12:36] LABS: UACC Culture Trigger YES
[2025-05-31 13:05] LABS: Alanine Aminotransferase 54 U/L (0-31); Albumin Level 4.7 g/dL (3.5-5.0); Alkaline Phosphatase 89 U/L (39-117); Anion Gap 16 (12-20); Aspartate Amino Transferase 43 U/L (5-31); Blood Urea Nitrogen 11 mg/dL (9-16); Calcium 9.6 mg/dL (8.4-10.2); Carbon Dioxide 23 mmol/L (22-29); Chloride 108 mmol/L (96-108); Cholesterol 294 mg/dL (<200); Estimated Glomerular Filt Rate > 60; HDL Cholesterol 75 mg/dL (>40); Potassium 4.5 mmol/L (3.3-5.1); Sodium 142 mmol/L (135-145); Total Protein 8.1 g/dL (6.5-8.0); Triglycerides 114 mg/dL (<150)
[2025-05-31 13:27] LABS: Folate 10.8 ng/mL (> or = 4.0); Vitamin B12 736 pg/mL (200-900)
[2025-05-31 14:08] LABS: Free T4 (Free Thyroxine) 1.07 ng/dL (0.71-1.85)
== END 2025-05-31 11:55 | disposition home or self-care (01) ==
LOC: HO.LAB 11:54
PROVIDERS: PCP Internal Medicine; Visit Provider Internal Medicine
DX: Z00.00 Encounter for general adult medical examination without abnormal findings (principal); D64.9 Anemia, unspecified; E78.00 Pure hypercholesterolemia, unspecified; E53.8 Deficiency of other specified B group vitamins; E55.9 Vitamin D deficiency, unspecified; R30.0 Dysuria
CPT/HCPCS: 36415; 80053; 80061; 81001; 82306; 82607; 82746; 83695; 84439; 84443; 85025; 87086

== ENCOUNTER 2025-06-28 14:53 | Outpatient (REF) | payer OTHER, SELFPAY ==
--- NOTE | ~2025-06-28 | MM_ITS ---
EXAMINATION: MM SCREENING DIGITAL BREAST TOMOSYNTHESIS, BILATERAL CLINICAL INFORMATION: Screening. Asymptomatic. COMPARISON: Mammography: Comparison is made with available priors TECHNIQUE: Digital breast mammography with tomosynthesis is performed in both the craniocaudal and mediolateral oblique views along with computer-aided detection (CAD). FINDINGS: The breasts are heterogeneously dense, which may obscure small masses. Right marker clip. There are no significant masses, abnormal calcifications, or other abnormalities. MM/MM tomosynthesis screening BI IMPRESSION: No mammographic evidence of malignancy. ASSESSMENT: BI-RADS Category 2: Benign RECOMMENDATION: Routine annual mammography screening. 1 year F/U This examination should not preclude the clinical evaluation of a suspicious palpable abnormality. This patient's information was entered into a reminder system with a target due date for their next mammogram. Electronically signed by: Krystyna Ureña DO 07/02/2025 01:51 PM [facility]
== END 2025-06-28 14:54 | disposition home or self-care (01) ==
LOC: HO.MAMMO 14:53
PROVIDERS: PCP Internal Medicine; Visit Provider Internal Medicine
DX: Z12.31 Encounter for screening mammogram for malignant neoplasm of breast (principal)
CPT/HCPCS: 77063; 77067

== ENCOUNTER → 2025-06-28 15:00 | Outpatient (BNV) | payer OTHER, SELFPAY | PROVIDERS: PCP Internal Medicine; Visit Provider Internal Medicine | DX: Z12.31 Encounter for screening mammogram for malignant neoplasm of breast (principal) | CPT/HCPCS: 77063; 77067 ==